=== PATIENT | male | born 1940 | race Caucasian/White ===

== ENCOUNTER 2016-10-24 12:08 | Day surgery (SDC) | payer BC ==
[2016-10-19 11:16] LABS: HEMATOCRIT 45.1 % (40.0-51.0); HEMOGLOBIN 14.6 g/dL (13.6-17.8)
[2016-10-19 11:23] LABS: CALCIUM, SERUM 9.4 MG/DL (8.5-10.4); CHLORIDE, SERUM 106 MMOL/L (96-112); CO2 (CARBON DIOXIDE) 31 MMOL/L (24-34); CREATININE 1.01 MG/DL (0.70-1.30); GFR AFRICAN AMERICAN 85 ML/MIN (>=60); GFR NON AFRICAN AMERICAN 73 ML/MIN (>=60); POTASSIUM, SERUM 3.7 MMOL/L (3.5-5.3); SODIUM, SERUM 142 MMOL/L (135-148)
[2016-10-19 11:24] LABS: BUN (BLOOD UREA NITROGEN) 26 MG/DL (6-23); GLUCOSE, SERUM 115 MG/DL (60-99)
--- NOTE | ~2016-10-24 | OP ---
Record Of Operation [facility] [address] [place]. [address] NAME: STANTON ISRAEL : 44 STATUS : REG [facility]#: [id number] AGE: 76 ADM/REG DATE : 10/24/16 MR#: [id number] REPORT SERV DATE: 10/24/16 DICTATED BY: BERNARDO BECKWITH III DATE: 10/24/16 REPORT STATUS : Draft TRANSCRIBED BY: MODL DATE: 10/24/16 DATE OF PROCEDURE: 10/24/2016 PREOPERATIVE DIAGNOSIS: Gross hematuria. POSTOPERATIVE DIAGNOSIS: Radiation cystitis. PROCEDURE: Cystoscopy and cauterization. ANESTHESIA: General. SPECIMEN: None. DRAINS: None. ESTIMATED BLOOD LOSS: 2 mL. INDICATION: Mr. Israel is a 76-year-old white male with a history of prostate cancer, who has had radioactive brachytherapy in the past. He is on Xarelto, and recently he has had some episodes of gross hematuria. A CT scan of the abdomen and pelvis was negative. Consent is obtained for cystoscopy and possible cauterization. DESCRIPTION OF PROCEDURE: After consent was obtained, the patient was identified and was taken to the OR and put to sleep. He was positioned in the low lithotomy position and prepped and draped in usual fashion. A 22-Cypriot cystoscope was made ready and advanced along the course urethra into the bladder. Pictures were obtained. The prostatic urethra was open. There were dilated blood vessels around the bladder neck consistent with radiation cystitis. The rest of the bladder was inspected. There were no tumors, stones, or foreign bodies noted. The bladder wall was slightly trabeculated. There was some bleeding from the bladder neck. The Bugbee electrode was used to cauterize that area. The bladder was then drained. The scope was removed. The patient was awakened and taken to recovery in stable condition. PH/MODL Bernardo Beckwith III, M.D. / [id number] CC: Anne-Marie Land III, M.D.
[~2016-10-24 12:08] MED LIST: ACET500CAP PO; ASA5GR PO; ASAB PO; ASABAYER PO; C5 PO; COREG3 PO; COUMADIN6 MG PO; COUMADIN7.5 MG PO; FISH-EPA1000 MG PO; FLOMAX4 PO; GLUCCHONDR PO; IMDUR30 PO; KONSYL100 % PO; KRILLOIL PO; L20 PO; LOTENSIN HCT1 TA2 PO; MAX25 PO; MAXIDE; MAXIDE 75/50 PO; MAXZIDE PO; METROGEL1 % TOP; MULTIVIT/MIN PO; NIACIN 500 PO; NITROSTAT0.4 MG SL; PRINZIDE1 TA1 PO; T PO; TUMSROLL PO; VITAMIN C100 MG PO; VITAMIN D1000 UNI1 PO; VITAMIN D31000 UNIT PO; XARELTO20 MG PO; ZOCOR40 PO; ZOCOR80 MG PO; [UNRECOGNIZED DRUG - REMARK]
[2017-03-12] MEDS ORDERED: PROSCAR5 PO (10:35)
[2017-03-14] MEDS ORDERED: PYR100B PO (12:25)
== END 2016-10-24 17:38 | disposition home or self-care (01) ==
LOC: SDC 12:08
PROVIDERS: Urology
PROC: 0T5C8ZZ Destruction of Bladder Neck, Via Natural or Artificial Opening Endoscopic (ICD-10-PCS; principal; 2016-10-24 14:00)
DX: N30.41 Irradiation cystitis with hematuria (principal); E66.9 Obesity, unspecified; I25.10 Atherosclerotic heart disease of native coronary artery without angina pectoris; G47.33 Obstructive sleep apnea (adult) (pediatric); Z99.89 Dependence on other enabling machines and devices; Z79.82 Long term (current) use of aspirin; Z79.899 Other long term (current) drug therapy; Z90.49 Acquired absence of other specified parts of digestive tract; Z68.42 Body mass index [BMI] 45.0-49.9, adult; Z95.1 Presence of aortocoronary bypass graft; Z95.5 Presence of coronary angioplasty implant and graft; Z98.890 Other specified postprocedural states; Z86.711 Personal history of pulmonary embolism
CPT/HCPCS: 80048; 85014; 85018; 93005; A9270-GY; J2250; J2405; J3010; Q9967

== ENCOUNTER 2016-11-15 07:42 | Day surgery (SDC) | payer BC ==
[2016-11-14 11:50] LABS: BASOPHILS 0.2 %; BASOPHILS ABSOLUTE 0.01 10/3/uL (0.0-0.16); EOSINOPHILS ABSOLUTE 0.05 10/3/uL (0.0-0.53); HEMATOCRIT 45.1 % (40.0-51.0); HEMOGLOBIN 15.1 g/dL (13.6-17.8); IMMATURE GRANULOCYTES 0.2 %; IMMATURE GRANULOCYTES ABSOLUTE 0.01 10/3/uL (0.0-0.11); LYMPHOCYTES 14.9 %; LYMPHOCYTES ABSOLUTE 0.76 10/3/uL (0.67-4.30); MEAN CORPUS HGB CONC 33.5 g/dL (32.0-36.0); MEAN CORPUSCULAR HEMOGLOB 31.4 pg (26.0-34.0); MEAN CORPUSCULAR VOLUME 93.8 fL (80-100); MEAN PLATELET VOLUME 9.1 fL (9.2-13.0); MONOCYTES 5.9 %; NEUTROPHILS 77.8 %; NEUTROPHILS ABSOLUTE 3.98 10/3/uL (2.02-8.40); PLATELET COUNT 95 10/3/uL (150-400); RBC DISTRIBUTION WIDTH 14.2 % (12.0-16.0); RED CELL COUNT 4.81 10/6/uL (4.7-6.1); WHITE BLOOD CELLS 5.1 10/3/uL (4.5-10.5)
[2016-11-14 11:51] LABS: MANUAL DIFF NO %
[2016-11-14 12:03] LABS: CALCIUM, SERUM 9.5 MG/DL (8.5-10.4); CHLORIDE, SERUM 105 MMOL/L (96-112); CO2 (CARBON DIOXIDE) 28 MMOL/L (24-34); CREATININE 0.98 MG/DL (0.70-1.30); GFR AFRICAN AMERICAN 88 ML/MIN (>=60); GFR NON AFRICAN AMERICAN 76 ML/MIN (>=60); GLUCOSE, SERUM 123 MG/DL (60-99); POTASSIUM, SERUM 4.3 MMOL/L (3.5-5.3); SODIUM, SERUM 143 MMOL/L (135-148)
[2016-11-14 12:04] LABS: BUN (BLOOD UREA NITROGEN) 19 MG/DL (6-23)
--- NOTE | ~2016-11-15 | OP ---
Record Of Operation [facility] [address] [place]. [address] NAME: STANTON ISRAEL : 44 STATUS : REG [facility] PAT#: [id number] AGE: 76 ADM/REG DATE : 11/15/16 MR#: [id number] REPORT SERV DATE: 11/15/16 DICTATED BY: BERNARDO BECKWITH III DATE: 11/15/16 REPORT STATUS : Draft TRANSCRIBED BY: MODL DATE: 11/15/16 DATE OF PROCEDURE: 11/15/2016 PREOPERATIVE DIAGNOSIS: Gross hematuria with clots. POSTOPERATIVE DIAGNOSIS: Bleeding from prostate. PROCEDURE: Cystoscopy, clot evacuation, and fulguration. SURGEON: Bernardo Beckwith M.D. ANESTHESIA: General. SPECIMEN: Urine for culture. INDICATION: Mr. Israel is a 76-year-old white male, he has a history of prostate cancer and had brachytherapy in the past. He had developed radiation cystitis. He is also on Xarelto. He recently has had gross hematuria with clots. Consent is obtained for the above procedure. PROCEDURE IN DETAIL: After consent was obtained, the patient was identified, and was taken to the OR, and put to sleep. He was positioned in the low lithotomy position and prepped and draped in the usual fashion. A 22-Kyrgyz cystoscope was inserted along the course of the urethra into the bladder. Small clot was encountered. This was flushed out using the Nany evacuator. After all clot was evacuated, there was some bleeding from the 9 o'clock position of the prostate. This was cauterized with a Bugbee. During the course of the case, there was some bleeding from the prostatic urethra. The bleeding points were cauterized with the Bugbee. The bladder was then drained. Scope removed. The patient was awakened and taken to recovery in stable condition. PH/MODL Bernardo Beckwith III, M.D. / [id number] CC: Anne-Marie Land III, M.D.
[2016-11-15 12:50] LABS: ASCORBIC ACID (UR NOT ORDER) NEG (NEG); BILIRUBIN, URINE NEGATIVE (NEG); KETONE, URINE NEGATIVE (NEG); LEUKOCYTE ESTERASE(NOT OR NEG (NEG); WBC (NOT ORDERED) (RFLEX) 6 (0-5)
[2017-03-12] MEDS ORDERED: PROSCAR5 PO (10:35)
[2017-03-14] MEDS ORDERED: PYR100B PO (12:25)
== END 2016-11-15 14:22 | disposition home or self-care (01) ==
LOC: SDC 07:42
PROVIDERS: Urology
PROC: 0V508ZZ Destruction of Prostate, Via Natural or Artificial Opening Endoscopic (ICD-10-PCS; 2016-11-15)
PROC: 0TCB8ZZ Extirpation of Matter from Bladder, Via Natural or Artificial Opening Endoscopic (ICD-10-PCS; principal; 2016-11-15 09:15)
DX: N30.41 Irradiation cystitis with hematuria (principal); I10 Essential (primary) hypertension; E78.00 Pure hypercholesterolemia, unspecified; G47.33 Obstructive sleep apnea (adult) (pediatric); K57.90 Diverticulosis of intestine, part unspecified, without perforation or abscess without bleeding; E66.01 Morbid (severe) obesity due to excess calories; Z68.42 Body mass index [BMI] 45.0-49.9, adult; Z90.49 Acquired absence of other specified parts of digestive tract; Z92.3 Personal history of irradiation; Z85.46 Personal history of malignant neoplasm of prostate; Z87.891 Personal history of nicotine dependence; Z86.711 Personal history of pulmonary embolism; Z95.1 Presence of aortocoronary bypass graft; Z79.01 Long term (current) use of anticoagulants; Z79.82 Long term (current) use of aspirin; Z79.899 Other long term (current) drug therapy; Z98.890 Other specified postprocedural states
CPT/HCPCS: 80048; 81001; 85025; 87086; A9270-GY; J2270; J2405; J3010